=== PATIENT | male | born 1995 | race African-American/Black ===

== ENCOUNTER 2018-12-04 04:27 | Emergency (ER) | payer MEDICAID, OTHER ==
[~2018-12-04] VITALS: Wt 76.5 kg
[~2018-12-04 04:27] MED LIST: IBUP-1561 PO
[2018-12-04 04:37] VITALS: BP 128/82; PULSE 67; RESP 20
--- NOTE | 2018-12-04 07:22 | ERD ---
ER Documentation Chief Complaint Chief Complaint right wrist pain s/p punching wall x 4 weeks HPI This is a 23-year-old male who presents for evaluation of 4 weeks of wrist pain over the ulnar side of the dorsum of his wrist. The patient states he had a wall about 4 weeks ago and has been having persistent pain. He works as a computer systems security analyst, he is right-hand dominant, pain is intermittent, is worsened by flexion of his wrist. No abrasions or lacerations. ROS All systems reviewed and are negative except as per history of present illness. Medications Home Meds Reported Medications Ibuprofen* (Motrin*) 400 Mg Tab, 200 MG PO Q6H PRN for PAIN, TAB 05/04/14 Allergies Allergies: Coded Allergies: No Known Allergy (Unverified , 05/04/14) PMhx/Soc Medical and Surgical Hx: pt denies Medical Hx, pt denies Surgical Hx, Unable to obtain History of Surgery: No Anesthesia Reaction: No Hx Neurological Disorder: No Hx Respiratory Disorders: No Hx Cardiac Disorders: No Hx Psychiatric Problems: No Hx Miscellaneous Medical Probl: No Hx Alcohol Use: Yes (SOCIALLY ) Hx Substance Use: No Hx Tobacco Use: Yes (CIGARETTES ) Smoking Status: Current every day smoker Physical Exam Vitals Vital Signs Date Temp Pulse Resp B/P (MAP) Pulse Ox O2 O2 Flow FiO2 Time Delivery Rate 12/04/18 97.8 67 20 128/82 97 04:37 (97) Physical Exam Const: No acute distress Head: Atraumatic Eyes: Normal Conjunctiva ENT: Normal External Ears, Nose and Mouth. Neck: Full range of motion. No meningismus. Resp: Clear to auscultation bilaterally Cardio: Regular rate and rhythm, no murmurs Abd: Soft, non tender, non distended. Normal bowel sounds Skin: No petechiae or rashes Back: No midline or flank tenderness Ext: Right upper extremity: Skin is intact, compartments are soft and easily compressible, radial pulses 2+, there is tenderness over the carpometacarpal area of the ulnar side of the wrist, there is no snuffbox tenderness, there are no deformities, no swelling. Sensation is intact light touch distally cap refill is less than 2 seconds, Neur: Awake and alert Psych: Normal Mood and Affect Procedures/MDM 23-year-old male presents for evaluation of wrist pain. X-ray showed no fracture deformity, patient's range of motion appears to be intact, at this point I suspect most likely strain, versus torn ligament, I recommended supportive care to the patient, however did strongly advised that he follow-up with primary care doctor, given the prolonged duration of his symptoms, as he may need referral to physical therapy or to a hand specialist. He had no neurovascular deficits, the patient understood the plan of care, at discharge she was in no acute distress. Departure Diagnosis: Primary Impression: Wrist injury Encounter type: initial encounter Laterality: right Qualified Codes: S69.91XA - Unspecified injury of right wrist, hand and finger(s), initial encounter Additional Impression: Pain in wrist Laterality: right Qualified Codes: M25.531 - Pain in right wrist Condition: Stable Patient Instructions: Wrist Sprain Referrals: BRET MACDONALD MD (PCP) Additional Instructions: Call your primary care doctor TOMORROW for an appointment during the next 2-3 days.See the doctor sooner or return here if your condition worsens before your appointment time. HERMELINDA TEJADA MD Dec 04, 2018 07:22
== END 2018-12-04 07:49 | disposition home or self-care (01) ==
LOC: E/R 04:27
DX: S69.91XA Unspecified injury of right wrist, hand and finger(s), initial encounter (principal); F17.210 Nicotine dependence, cigarettes, uncomplicated; W22.01XA Walked into wall, initial encounter; Y92.9 Unspecified place or not applicable
CPT/HCPCS: 73110; Z7502